=== PATIENT | male | born 1995 | race American Indian/Alaskan Native ===

== ENCOUNTER 2020-01-05 12:05 | Emergency (ER) | payer SELFPAY ==
[2020-01-05] MEDS ORDERED: FAMOTIDINE 20 MG/2 ML INJ IV ONE ×2 (18:55→22:05)
[2020-01-05] MEDS ORDERED: SODIUM CHLORIDE 0.9% 1000 ML 1,000 ML IV ONE (18:55)
[2020-01-05] MEDS ORDERED: MORPHINE 4 MG/1 ML INJ IV ONE (18:55)
[2020-01-05] MEDS ORDERED: ONDANSETRON 4 MG/2 ML INJ IV ONE (18:55)
--- NOTE | 2020-01-05 18:56 | Emergency Department Report ---
ED General Adult HPI - General Chief complaint: Upper Respiratory Infection Stated complaint: CHEST PAIN/VOMITING BLOOD PUI?: No Time Seen by Provider: 01/05/20 18:26 Source: patient, RN notes reviewed Mode of arrival: Ambulatory Limitations: No Limitations - History of Present Illness Initial comments: The patient was evaluated in the emergency department for symptoms described in the history of present illness. He/she was evaluated in the context of the global COVID-19 pandemic, which necessitated consideration that the patient might be at risk for infection with the virus that causes COVID-19. Institutional protocols and algorithms that pertain to the evaluation of patients at risk for COVID-19 are in a state of rapid change based on information released by regulatory bodies including the CDC and federal and state organizations. These policies and algorithms were followed during the patient's care in the emergency department. Please note that these policies, procedures and recommendations changed on a rapid basis. Patient is a 24-year-old gentleman. He is not known to myself previously. He does not have a primary care doctor. Patient presents to the ER today with a complaint of unprovoked nontraumatic supraumbilical pain, right mid flank pain, right upper quadrant pain, associated with profuse nausea and vomiting, that started this morning. He states he recently consumed heavy/spicy foods, sausage and or grits. He reports intermittent, and increasingly frequent right upper quadrant pain with consumption of heavy and spicy foods. He does not have a history of biliary colic that he is aware of. Initially emesis was clear, yellow and green. Then, he started to throw up "so much", that he reports bloody emesis. Once he started to throw up bloody emesis, he developed central chest wall pain, which is nonradiating, nonexertional, does not radiate to the back, arms or neck, without diaphoresis or exertional shortness of breath. He denies testicular pain, urinary symptoms, DVT and pulmonary embolism risk factors. He does not smoke cigarettes or marijuana. His pain is intermittent, presents for the past day. Nausea and vomiting are present/resolved respectively. -: Gradual, hour(s) Location: chest, abdomen Radiation: non-radiation Severity scale (0 -10): 2 Quality: aching Consistency: constant Improves with: rest Worsens with: movement - Related Data Previous Rx's Medication Instructions Recorded Last Taken Type Acetaminophen [Non-Aspirin Extra 500 mg PO Q6HR PRN #30 tablet 01/05/20 Unknown Rx Strength] Famotidine [Pepcid] 20 mg PO BID #60 tablet 01/05/20 Unknown Rx Karis Root [Karis] 250 mg PO QID PRN #30 capsule 01/05/20 Unknown Rx Ondansetron [Zofran Odt] 4 mg PO Q8HR PRN #20 tab.rapdis 01/05/20 Unknown Rx Allergies Allergy/AdvReac Type Severity Reaction Status Date / Time shrimp Allergy Rash Verified 01/05/20 12:47 ED Review of Systems ROS: Stated complaint: CHEST PAIN/VOMITING BLOOD Other details as noted in HPI Constitutional: other (Negative loss of taste, negative loss of smell). denies: fever, malaise, weakness Eyes: denies: eye discharge ENT: denies: congestion Respiratory: denies: cough, shortness of breath, SOB with exertion, SOB at rest Cardiovascular: chest pain Gastrointestinal: abdominal pain, nausea, vomiting, hematemesis. denies: melena, hematochezia Genitourinary: denies: dysuria Musculoskeletal: denies: back pain Neurological: denies: weakness Psychiatric: anxiety Hematological/Lymphatic: denies: easy bleeding ED Past Medical Hx - Past Medical History Previous Medical History?: No - Surgical History Past Surgical History?: No - Social History Smoking Status: Never Smoker Substance Use Type: Alcohol - Medications Home Medications: Home Medications Medication Instructions Recorded Confirmed Last Taken Type Acetaminophen [Non-Aspirin Extra 500 mg PO Q6HR PRN #30 tablet 01/05/20 Unknown Rx Strength] Famotidine [Pepcid] 20 mg PO BID #60 tablet 01/05/20 Unknown Rx Karis Root [Karis] 250 mg PO QID PRN #30 capsule 01/05/20 Unknown Rx Ondansetron [Zofran Odt] 4 mg PO Q8HR PRN #20 tab.rapdis 01/05/20 Unknown Rx ED Physical Exam - General Limitations: No Limitations General appearance: alert, obese - Head Head exam: Present: atraumatic, normocephalic - Eye Eye exam: Present: normal appearance, EOMI. Absent: nystagmus - ENT ENT exam: Present: normal exam, normal orophraynx, mucous membranes moist, normal external ear exam - Neck Neck exam: Present: normal inspection, full ROM. Absent: tenderness, meningismus - Respiratory Respiratory exam: Present: normal lung sounds bilaterally. Absent: respiratory distress, wheezes, rales, rhonchi, stridor, decreased breath sounds - Cardiovascular Cardiovascular Exam: Present: regular rate, normal rhythm, normal heart sounds. Absent: bradycardia, tachycardia, irregular rhythm, systolic murmur, diastolic murmur, rubs, gallop - GI/Abdominal GI/Abdominal exam: Present: soft, tenderness, normal bowel sounds, other (There is right upper quadrant tenderness, right flank, and right lower quadrant tenderness.). Absent: distended, guarding, rebound, rigid, pulsatile mass - Rectal Rectal exam: Present: deferred - Extremities Exam Extremities exam: Present: normal inspection, full ROM, other (2+ pulses noted in the bilateral upper and lower extremities. There is no palpable cord. negative Homans sign. Muscular compartments are soft. The pelvis is stable.). Absent: pedal edema, calf tenderness - Back Exam Back exam: Present: normal inspection, full ROM. Absent: tenderness, CVA tenderness (R), CVA tenderness (L), paraspinal tenderness, vertebral tenderness - Neurological Exam Neurological exam: Present: alert, oriented X3, normal gait, other (No facial droop. Tongue midline. Extraocular movements intact bilaterally. Facial sensation intact to light touch in V1, V2, V3 distribution bilaterally. 5 and a 5 strength in 4 extremities. Sensation intact to light touch in 4 extremitie s.). Absent: motor sensory deficit - Psychiatric Psychiatric exam: Present: normal affect, normal mood - Skin Skin exam: Present: warm, dry, intact, normal color. Absent: rash ED Course Vital Signs 01/05/20 01/05/20 01/05/20 12:47 18:09 22:00 Temperature 97.8 F 98.7 F 99 F Pulse Rate 75 81 67 Respiratory 18 16 16 Rate Blood Pressure 150/72 Blood Pressure 152/69 137/73 [Right] O2 Sat by Pulse 97 98 98 Oximetry - Reevaluation(s) Reevaluation #1: 01/05/20 20:05 Differential diagnosis, including but not limited to: Biliary colic, cholecystitis, renal colic, appendicitis, GERD, gastritis, hiatal hernia, costochondritis, Charlee-Escalante tear Assessment and plan: 24-year-old gentleman, who is not currently tachycardic, tachypneic or hypoxic, who denies DVT, pulmonary embolism risk factors, who is low risk by Wells criteria for pulmonary embolism, PERC negative, low risk for major adverse cardiac event as per heart score, with unprovoked nontraumatic abdominal pain, nausea vomiting, and subsequent hematemesis without bright red blood per rectum. Suspect biliary colic, with probable Charlee-Escalante tear. Check basic labs, right upper quadrant ultrasound, CT scan of the abdomen pelvis, appropriate laboratory studies, urinalysis, x-ray the chest, EKG, and reassess. Treat patient's pain and symptoms. Discussed this plan of care with the patient, who verbalized understanding, and who is amenable to this plan of care. Reevaluation #2: 01/05/20 22:48 CT scan of the abdomen pelvis negative for acute disease. Right upper quadrant ultrasound negative for acute findings. Urinalysis negative for acute findings. Urine toxicology study demonstrates presence of cannabis. Patient tolerating liquid feeds, and he is in no acute distress at this time. He is clinically sober at this time. He can be discharged with pain medication, nausea medication, diet lifestyle modifications will be discussed, he will need to follow-up with outpatient primary care, and/or GI. ED Medical Decision Making - Lab Data Result diagrams: 01/05/20 18:58 01/05/20 18:58 Vital Signs 01/05/20 01/05/20 12:47 18:09 Temperature 97.8 F 98.7 F Pulse Rate 75 81 Respiratory 18 16 Rate Blood Pressure 150/72 Blood Pressure 152/69 [Right] O2 Sat by Pulse 97 98 Oximetry Lab Results 01/05/20 Range/Units 18:58 WBC 7.0 (4.5-11.0) K/mm3 RBC 6.23 H (3.65-5.03) M/mm3 Hgb 14.0 (11.8-15.2) gm/dl Hct 42.4 (35.5-45.6) % MCV 68 L (84-94) fl MCH 22 L (28-32) pg MCHC 33 (32-34) % RDW 15.9 H (13.2-15.2) % Plt Count 204 (140-440) K/mm3 Vital Signs 01/05/20 01/05/20 12:47 18:09 Temperature 97.8 F 98.7 F Pulse Rate 75 81 Respiratory 18 16 Rate Blood Pressure 150/72 Blood Pressure 152/69 [Right] O2 Sat by Pulse 97 98 Oximetry Lab Results 01/05/20 01/05/20 01/05/20 Range/Units 18:58 18:58 18:58 WBC 7.0 (4.5-11.0) K/mm3 RBC 6.23 H (3.65-5.03) M/mm3 Hgb 14.0 (11.8-15.2) gm/dl Hct 42.4 (35.5-45.6) % MCV 68 L (84-94) fl MCH 22 L (28-32) pg MCHC 33 (32-34) % RDW 15.9 H (13.2-15.2) % Plt Count 204 (140-440) K/mm3 PT 13.6 (12.2-14.9) Sec. INR 1.03 (0.87-1.13) Sodium 140 (137-145) mmol/L Potassium 3.6 (3.6-5.0) mmol/L Chloride 99.4 (98-107) mmol/L Carbon Dioxide 29 (22-30) mmol/L Anion Gap 15 mmol/L BUN 9 (9-20) mg/dL Creatinine 0.8 (0.8-1.3) mg/dL Estimated GFR > 60 ml/min BUN/Creatinine Ratio 11 % Glucose 78 (75-100) mg/dL Calcium 9.8 (8.4-10.2) mg/dL Magnesium (1.7-2.3) mg/dL Total Bilirubin (0.1-1.2) mg/dL Direct Bilirubin (0-0.2) mg/dL Indirect Bilirubin mg/dL AST (5-40) units/L ALT (7-56) units/L Alkaline Phosphatase (35-129) units/L Total Creatine Kinase (55-170) units/L Troponin T (0.00-0.029) ng/mL Total Protein (6.3-8.2) g/dL Albumin (3.9-5) g/dL Albumin/Globulin Ratio % Lipase (13-60) units/L 01/05/20 01/05/20 Range/Units 18:58 18:58 WBC (4.5-11.0) K/mm3 RBC (3.65-5.03) M/mm3 Hgb (11.8-15.2) gm/dl Hct (35.5-45.6) % MCV (84-94) fl MCH (28-32) pg MCHC (32-34) % RDW (13.2-15.2) % Plt Count (140-440) K/mm3 PT (12.2-14.9) Sec. INR (0.87-1.13) Sodium (137-145) mmol/L Potassium (3.6-5.0) mmol/L Chloride (98-107) mmol/L Carbon Dioxide (22-30) mmol/L Anion Gap mmol/L BUN (9-20) mg/dL Creatinine (0.8-1.3) mg/dL Estimated GFR ml/min BUN/Creatinine Ratio % Glucose (75-100) mg/dL Calcium (8.4-10.2) mg/dL Magnesium 1.90 (1.7-2.3) mg/dL Total Bilirubin 0.50 (0.1-1.2) mg/dL Direct Bilirubin < 0.2 (0-0.2) mg/dL Indirect Bilirubin 0.3 mg/dL AST 31 (5-40) units/L ALT 61 H (7-56) units/L Alkaline Phosphatase 69 (35-129) units/L Total Creatine Kinase 272 H (55-170) units/L Troponin T < 0.010 (0.00-0.029) ng/mL Total Protein 7.9 (6.3-8.2) g/dL Albumin 4.3 (3.9-5) g/dL Albumin/Globulin Ratio 1.2 % Lipase 28 (13-60) units/L - EKG Data -: EKG Interpreted by [facility] EKG shows normal: sinus rhythm, axis, intervals, QRS complexes, ST-T waves - EKG Data When compared to previous EKG there are: previous EKG unavailable Interpretation: normal EKG - Radiology Data Radiology results: pending, report reviewed, image reviewed Print Report Referring Physician: CECILIA CAMPOS Patient Name: CHINO VERDUZCO Date of : 1995 Sex: Male Report Date: 2020-01-05 Report Status: Finalized Findings [facility] [address] [place] [address] XRay Report Signed Patient: CHINO VERDUZCO MR#: [id number] : 1995 Acct:[id number] Age/Sex: 24 / M ADM Date: 01/05/20 Loc: ED Attending Dr: Ordering Physician: CECILIA CAMPOS MD Date of Service: 01/05/20 Procedure(s): XR chest routine 2V Accession Number(s): [id number] cc: CECILIA CAMPOS MD Fluoro Time In Minutes: CHEST PA AND LATERAL VIEWS INDICATION: cp n/v. COMPARISON: None FINDINGS: Support devices: None Heart: Normal Lungs/Pleura: No acute pulmonary or pleural findings. IMPRESSION: 1. No significant abnormality. Signer Name: Felix Thurman MD Signed: 01/05/2020 7:30 PM Workstation Name: [id number] Transcribed By: TM Dictated By: Felix Thurman MD Electronically Authenticated By: Felix Thurman MD Signed Date/Time: 01/05/201929 DD/ 29 TD/TT: Print Report Referring Physician: CECILIA CAMPOS Patient Name: CHINO VERDUZCO Date of : 1995 Sex: Male Report Date: 2020-01-05 Report Status: Finalized Findings [address] [address] Cat Scan Report Signed Patient: CHINO VERDUZCO MR#: [id number] : 1995 Acct:[id number] Age/Sex: 24 / M ADM Date: 01/05/20 Loc: ED Attending Dr: Ordering Physician: CECILIA CAMPOS MD Date of Service: 01/05/20 Procedure(s): CT abdomen pelvis w con Accession Number(s): [id number] cc: CECILIA CAMPOS MD CT abdomen pelvis w con INDICATION: ruq, rt flank, rlq abd pain n/v. COMPARISON: None TECHNIQUE: Abdominal and pelvic CT exam performed. All CT scans at this location are performed using CT dose reduction for ALARA by means of automated exposure control. FINDINGS: CT ABDOMEN and PELVIS: Lung Bases: No significant abnormality. Liver: No significant abnormality. Biliary: No significant abnormality. Spleen: No significant abnormality. Pancreas: No signif icant abnormality. Adrenals: No significant abnormality. Kidneys: No significant abnormality. Lymphatics: No lymphadenopathy. Vasculature: No significant abnormality. Bowel/Peritoneum: No significant abnormality. Normal appendix. Pelvis: No significant abnormality. Osseous Structures: No aggressive osseous lesion. Additional Findings: None IMPRESSION: 1. No significant abnormality of the abdomen or pelvis. Signer Name: To Morgan MD Signed: 01/05/2020 9:32 PM Workstation Name: [id number] Transcribed By: CS Dictated By: To Morgan MD Electronically Authenticated By: To Morgan MD Signed Date/Time: 01/05/202131 DD/ 30 TD/TT: Print Report Referring Physician: CECILIA CAMPOS Patient Name: CHINO VERDUZCO Date of : 1995 Sex: Male Report Date: 2020-01-05 Report Status: [place] [address] Ultrasound Report Signed Patient: CHINO VERDUZCO MR#: [id number] : 1995 Acct:[id number] Age/Sex: 24 / M ADM Date: 01/05/20 Loc: ED Attending Dr: Ordering Physician: CECILIA CAMPOS MD Date of Service: 01/05/20 Procedure(s): US abdomen limited Accession Number(s): [id number] cc: CECILIA CAMPOS MD US abdomen limited INDICATION: ruq pain COMPARISON: None. FINDINGS: Image quality is significantly degraded secondary to body habitus. Pancreas: Not well-visualized. Abdominal aorta: No significant abnormality. Liver: No significant abnormality. Gallbladder: No gallbladder stones identified. No gallbladder wall thickening. No pericholecystic fluid. Bile ducts: The common bile duct measures 2 mm. The kidneys are not visualized secondary to overlying bowel gas. Additional findings: No significant additional findings. IMPRESSION: No significant sonographic abnormality identified. Signer Name: To Morgan MD Signed: 01/05/2020 9:33 PM Workstation Name: [id number] Transcribed By: CS Dictated By: To Morgan MD Electronically Authenticated By: To Morgan MD Signed Date/Time: 01/05/202132 DD/ 32 TD/TT: Critical care attestation.: If time is entered above; I have spent that time in minutes in the direct care of this critically ill patient, excluding procedure time. ED Disposition Clinical Impression: History of nausea and vomiting, History of hematemesis Abdominal pain Qualifiers: Abdominal location: unspecified location Qualified Code(s): R10.9 - Unspecified abdominal pain Disposition: - TO HOME OR SELFCARE Is pt being admited?: No Does the pt Need Aspirin: No Condition: Stable Additional Instructions: Take the prescribed medications as needed and/or directed. Minimize/avoid consumption of alcohol, Motrin, ibuprofen, Naprosyn, Aleve, heavy and spicy foods. Drink 6 cups of water per day indefinitely, do not take metformin medication for the next 2 days if patient takes this medication. Avoid consumption of alcohol, tobacco, smoke products and marijuana/cannabis. Recommend follow-up with an outpatient primary care doctor or cotton opener within the next month. Please return to the emergency room right away with new pain, worsened pain, migration of pain, projectile vomiting, change in mental status, confusion, recurrent vomiting blood, or defecating blood. Referrals: DALY PACHECO MD [Staff Physician] - 3-5 Days [facility] [Provider Group] - 3-5 Days
--- NOTE | 2020-01-05 19:34 | XRay Report ---
CHEST PA AND LATERAL VIEWS INDICATION: cp n/v. COMPARISON: None FINDINGS: Support devices: None Heart: Normal Lungs/Pleura: No acute pulmonary or pleural findings. IMPRESSION: 1. No significant abnormality. Signer Name: Felix Thurman MD Signed: 01/05/2020 7:30 PM Workstation Name: [id number]
[2020-01-05 19:48] LABS: Hematocrit 42.4 % (35.5-45.6); Mean Corpuscular HGB Conc 33 % (32-34); Platelet Count 204 K/mm3 (140-440); Red Blood Count 6.23 M/mm3 (3.65-5.03); Red Cell Distribution Width 15.9 % (13.2-15.2)
[2020-01-05 19:49] LABS: Mean Corpuscular Volume 68 fl (84-94)
[2020-01-05 19:57] LABS: INR 1.03 (0.87-1.13)
[2020-01-05 20:05] LABS: BUN/Creatinine Ratio 11; Blood Urea Nitrogen 9 mg/dL (9-20); Calcium 9.8 mg/dL (8.4-10.2); Hemolysis Index 5
[2020-01-05 20:07] LABS: Alanine Aminotransferase 61 units/L (7-56); Albumin 4.3 g/dL (3.9-5)
[2020-01-05 20:22] LABS: Bilirubin,Direct < 0.2 mg/dL (0-0.2)
--- NOTE | 2020-01-05 21:37 | Cat Scan Report ---
CT abdomen pelvis w con INDICATION: ruq, rt flank, rlq abd pain n/v. COMPARISON: None TECHNIQUE: Abdominal and pelvic CT exam performed. All CT scans at this location are performed using CT dose reduction for ALARA by means of automated exposure control. FINDINGS: CT ABDOMEN and PELVIS: Lung Bases: No significant abnormality. Liver: No significant abnormality. Biliary: No significant abnormality. Spleen: No significant abnormality. Pancreas: No significant abnormality. Adrenals: No significant abnormality. Kidneys: No significant abnormality. Lymphatics: No lymphadenopathy. Vasculature: No significant abnormality. Bowel/Peritoneum: No significant abnormality. Normal appendix. Pelvis: No significant abnormality. Osseous Structures: No aggressive osseous lesion. Additional Findings: None IMPRESSION: 1. No significant abnormality of the abdomen or pelvis. Signer Name: To Morgan MD Signed: 01/05/2020 9:32 PM Workstation Name: [id number]
--- NOTE | 2020-01-05 21:38 | Ultrasound Report ---
US abdomen limited INDICATION: ruq pain COMPARISON: None. FINDINGS: Image quality is significantly degraded secondary to body habitus. Pancreas: Not well-visualized. Abdominal aorta: No significant abnormality. Liver: No significant abnormality. Gallbladder: No gallbladder stones identified. No gallbladder wall thickening. No pericholecystic fl uid. Bile ducts: The common bile duct measures 2 mm. The kidneys are not visualized secondary to overlying bowel gas. Additional findings: No significant additional findings. IMPRESSION: No significant sonographic abnormality identified. Signer Name: To Morgan MD Signed: 01/05/2020 9:33 PM Workstation Name: [id number]
[2020-01-05 22:01] VITALS: BP 137/73
[2020-01-05] MEDS ORDERED: ONDANSETRON 4 MG/2 ML INJ ONE (22:04)
[2020-01-05] MEDS ORDERED: SODIUM CHLORIDE 0.9% 1000 ML 1,000 ML ONE (22:04)
[2020-01-05 22:37] LABS: Bilirubin,Urine NEG (Negative); Blood,Urine NEG (Negative); Color,Urine Yellow (Yellow); Mucus,Urine 1+ /HPF; Urobilinogen,Urine < 2.0 mg/dL (<2.0); WBC,Urine < 1.0 /HPF (0.0-6.0)
[2020-01-05 22:44] LABS: Amphetamine Screen,Urine PRESUMPTIVE NEGATIVE; Benzodiazepines Screen,Urine PRESUMPTIVE NEGATIVE; Cannabinoid Screen,Urine PRESUMPTIVE POSITIVE; Cocaine Screen,Urine PRESUMPTIVE NEGATIVE; Methadone Screen,Urine PRESUMPTIVE NEGATIVE; Opiate Screen,Urine PRESUMPTIVE NEGATIVE
== END 2020-01-05 23:47 | disposition home or self-care (01) ==
LOC: EDBD → ED 12:05
DX: K92.0 Hematemesis (principal); R10.9 Unspecified abdominal pain; Z79.899 Other long term (current) drug therapy
CPT/HCPCS: 36415; 71046; 74177; 76705; 80048; 80076; 80307; 81001; 82550; 83690; 83735; 84484; 85027; 85610; 96361; 96374; 96375; 99285; J2405; J7030; Q9967; 93005